=== PATIENT | female | born 1995 | race African-American/Black ===

== ENCOUNTER 2019-06-29 17:17 | Emergency (ER) | payer OTHER ==
[~2019-06-29] VITALS: Ht 157.5 cm; Wt 84.1 kg
[2019-06-29 17:28] VITALS: BP 136/85; TEMP 97.9
[2019-06-29 17:51] LABS: COLLECTION METHOD CLEAN CATCH
[2019-06-29 17:58] LABS: MUCOUS Present /lpf; PH 7 (5-8); SQUAMOUS EPITHELIAL 0-2 /hpf; URINE APPEARANCE Clear; URINE BACTERIA None Seen /hpf; URINE BILIRUBIN Negative (NEGATIVE); URINE BLOOD Negative (NEGATIVE); URINE COLOR Yellow; URINE GLUCOSE Negative (NEGATIVE); URINE KETONE Negative (NEGATIVE); URINE LEUKOCYTE ESTERASE Negative (NEGATIVE); URINE NITRATE Negative (NEGATIVE); URINE PROTEIN(semi-quant) Negative (NEGATIVE); URINE RBC 0-2 /hpf; URINE UROBILINOGEN Negative (NEGATIVE)
[2019-06-29 18:39] LABS: BASO % 0.5 % (0.0-2.0); EOS # 0.1 (0.0-0.7); EOS % 1.2 % (0-4.0); GRAN # 3.3 (1.4-6.5); GRAN % 49.7 % (42.2-75.2); HEMATOCRIT 38.9 % (37.0-47.0); HEMOGLOBIN 12.5 g/dl (12.5-16.0); LYMPH # 2.6 (1.2-3.4); LYMPH % 39.8 % (20.0-51.0); MEAN CELL VOLUME 93 fl (80.0-100.0); MEAN CORPUSCULAR HEMOGLOBIN 30 pg (27.0-31.0); MEAN CORPUSCULAR HGB CONC 32 g/dl (33.0-37.0); MEAN PLATELET VOLUME 10.2 fl (7.4-10.4); MONO # 0.6 (0.1-0.6); MONO % 8.6 % (1.7-9.3); PLATELET COUNT 340 K/mm3 (130-400); RED BLOOD COUNT 4.17 M/mm3 (4.10-5.30); REDCELL DISTRIBUTION WIDTH-CV 12.6 % (11.5-14.5)
[2019-06-29 18:49] LABS: ALBUMIN 4.1 gm/dL (3.5-5.0); BILIRUBIN,TOTAL 0.1 mg/dL (0.0-1.0); C-REACTIVE PROTEIN 1.5 mg/dL (0.0-0.9); CALCIUM 9.1 mg/dL (8.4-10.2); CREATININE, serum 0.74 (0.52-1.25); TOTAL PROTEIN 7.8 gm/dL (6.4-8.2)
[2019-06-29 19:18] LABS: STREP SCREEN NEGATIVE
[2019-06-29] MEDS ORDERED: ZITHROMAX Z PA250 MG PO (19:24)
[2019-06-29 19:45] VITALS: PULSE 83
== END 2019-06-29 19:45 | disposition home or self-care (01) ==
LOC: COL.ER 17:17
PROVIDERS: Physician Assistant
DX: J20.9 Acute bronchitis, unspecified (principal)
CPT/HCPCS: J1200; J1885; J2550; J7030